=== PATIENT | male | born 1990 | race Caucasian/White ===

== ENCOUNTER 2020-05-01 18:05 | Emergency (ER) | payer MEDICAID ==
[~2020-05-01] VITALS: Ht 175.3 cm; Wt 99.8 kg
[2020-05-01 18:18] VITALS: BP_SYST 142
[2020-05-01 18:24] VITALS: BP_SYST 142
== END 2020-05-01 18:51 | disposition left against medical advice (07) ==
LOC: SED 18:05
DX: R56.9 Unspecified convulsions (principal); E11.9 Type 2 diabetes mellitus without complications
CPT/HCPCS: 99283